=== PATIENT | male | born 1940 | race Caucasian/White ===

== ENCOUNTER → 2022-09-14 | Outpatient (CLI) | payer MEDICARE | LOC: LAB 13:33 | PROVIDERS: ATTEND Internal Medicine | DX: R19.7 Diarrhea, unspecified (principal); R63.4 Abnormal weight loss ==

== ENCOUNTER → 2022-10-27 | Outpatient (CLI) | payer MEDICARE ==
--- NOTE | 2022-10-27 16:06 | Diagnostic Imaging Report ---
INDICATION: Colon carcinoma, initial staging. TECHNIQUE: Serum blood glucose level at the time of injection was 63 mg/dL. Patient was administered 8.8 mCi F-18 FDG intravenously in the left antecubital location, and PET imaging was performed from the top of the skull to mid thighs. Noncontrast CT was also performed for attenuation correction and anatomic correlation. No prior studies are available for comparison. FINDINGS: There is symmetric activity throughout the brain. The soft tissues of the neck are unremarkable. No mediastinal or hilar hypermetabolism is identified. No pulmonary parenchymal hypermetabolism is identified. There is physiologic activity throughout the GI and tracts of the abdomen and pelvis. No hypermetabolic lymphadenopathy or mass is identified. There is a right paramidline ventral hernia containing a portion of the transverse colon. No strangulation is seen. The right kidney is surgically absent. IMPRESSION: Unremarkable PET/CT study. No suspicious regions of hypermetabolism are detected. Dictated by: Dictated on workstation # [id number]
== END ==
LOC: RAD 12:52
PROVIDERS: ATTEND Internal Medicine
DX: C18.9 Malignant neoplasm of colon, unspecified (principal)
CPT/HCPCS: 78815; 82947; A9552